=== PATIENT | male | born 1975 | race Caucasian/White ===

== ENCOUNTER → 2023-06-16 09:57 | Outpatient (CLI) | payer OTHER, MEDICAID, SELFPAY ==
[2023-06-16 11:23] LABS: Add Manual Diff / Slide Review NO; Basophils Absolute Auto 0 /uL (0-100); Basophils Percent Auto 0.5 % (0-2); Eosinophils Absolute Auto 0 /uL (0-450); Eosinophils Percent Auto 0.3 % (2-4); Hematocrit 44.7 % (41-53); Hemoglobin 15.4 g/dL (13.5-17.5); Lymphocytes Absolute Auto 1000 /uL (1100-4500); Lymphocytes Percent Auto 21.2 % (25-40); Mean Corpuscular HGB Conc 34.6 % (30-36); Mean Corpuscular Hemoglobin 32.7 PG (26-34); Mean Corpuscular Volume 94.6 fL (80-100); Monocytes Absolute Auto 400 /uL (0-900); Monocytes Percent Auto 7.7 % (3-14); Neutrophils Absolute Auto 3500 /uL (1500-7000); Neutrophils Percent Auto 70.3 % (50-75); Platelet Count 211 X10^3/uL (150-400); Red Blood Cell Count 4.72 X10^6/uL (4.5-5.9); Red Cell Distribution Width 12.2 % (11.6-14.8); White Blood Cell Count 4.9 X10^3/uL (4.5-11.0)
[2023-06-16 11:53] LABS: Alanine Aminotransferase 37 IU/L (<50); Albumin 4.6 g/dL (3.5-5.0); Albumin Globulin Ratio 1.7 (1.0-2.8); Alkaline Phosphatase 56 U/L (38-126); Aspartate Aminotransferase 25 IU/L (17-59); BUN Creatinine Ratio 18.6 (6-22); Bilirubin Total 0.7 mg/dL (0.2-1.3); Blood Urea Nitrogen 16 mg/dL (9-20); Calcium 9.2 mg/dL (8.4-10.2); Carbon Dioxide 30 mmol/L (22-32); Chloride 104 mmol/L (98-107); Cholesterol 147 mg/dL (140-199); Estimated Glomerular Filt Rate > 60 mL/min (>60); Globulin 2.7 g/dL (1.7-4.1); Glucose 107 mg/dL (70-100); HDL Cholesterol 60 mg/dL (40-60); HEMOLYSIS < 15 (0-50); LDL Cholesterol Calculated 77 mg/dL (<100); Potassium 4.2 mmol/L (3.4-5.1); Sodium 138 mmol/L (137-145); Total Protein 7.3 g/dL (6.3-8.2); Triglycerides 49 mg/dL (35-150)
== END ==
LOC: LAB 09:58
PROVIDERS: PCP Family Medicine; Referring Provider Family Medicine; Visit Provider Family Medicine
DX: Z00.00 Encounter for general adult medical examination without abnormal findings (principal)
CPT/HCPCS: 36415; 80053; 80061; 85025

== ENCOUNTER 2024-01-20 18:35 | Emergency (ER) | payer OTHER, MEDICAID, SELFPAY ==
[2024-01-20 18:41] VITALS: BP 166/80; PULSE 95; RESP 16; TEMP 37.2; O2SAT 100; BMI 22.8
[2024-01-20 22:02] VITALS: PULSE 90; O2SAT 97
[2024-01-20 22:03] VITALS: BP 152/73; PULSE 94; O2SAT 98
[2024-01-20 22:30] VITALS: BP 145/66; PULSE 66; O2SAT 100
[2024-01-20 23:00] VITALS: BP 129/61; PULSE 81; O2SAT 100
--- NOTE | 2024-01-20 23:28 | ED.SKABFB ---
HPI - Skin/Abscess/Foreign Bdy General Chief complaint: Skin/Abscess/Foreign Body Stated complaint: infected hair in armpit Time Seen by Provider: 01/20/24 22:59 Source: patient Mode of arrival: Ambulatory Limitations: no limitations History of Present Illness HPI narrative: 48-year-old male with history of recurrent skin infections, sometimes draining, including axilla and groin area in the past, usually not requiring antibiotics. Has increasing right armpit area redness and discomfort, that is not draining. No current oral/topical antibiotics. Arrived by [place] from [facility] to start some kind of antibiotic for infection. History of penicillin allergy, child reaction, unclear. Related Data Previous Rx's Medication Instructions Recorded clindamycin HCl 300 mg capsule 300 mg PO Q6H 7 days #28 caps 01/20/24 Allergies Allergy/AdvReac Type Severity Reaction Status Date / Time Penicillins AdvReac Mild Verified 01/20/24 18:41 Review of Systems Review of Systems Narrative: see HPI Patient History Medical History Anxiety, generalized Lipoma Multiple nevi Preventative health care Social History Smoking Status: Never smoker Smoking Status: Never smoker Exam Narrative Exam Narrative: GENERAL: Well-developed patient, in mild distress. HEAD: Atraumatic. Normocephalic. EYES: Pupils equal round and reactive. Extraocular motions intact. No scleral icterus. No injection or drainage. ENT: Nose without bleeding, purulent drainage. Throat without erythema, tonsillar hypertrophy or exudate. Airway patent. NECK: Trachea midline. Non tender CARDIOVASCULAR: Regular rate and rhythm without murmurs, gallops, or rubs. RESPIRATORY: Clear to auscultation. Breath sounds equal bilaterally. No wheezes, rales, or rhonchi. GASTROINTESTINAL: Abdomen soft, non-tender, nondistended. EXTREMITIES: No edema or joint tenderness. Right axillary area with 6 x 5 cm area of induration, no central punctum or fluctuance, no vesicles. No expressible fluid. BACK: Nontender without deformity or crepitance. No flank tenderness. NEURO: AOx3. Motor functions grossly nonfocal SKIN: No rash or erythema of visible areas Initial Vital Signs Initial Vital Signs: Vital Signs Temperature 98.9 F 01/20/24 18:41 Pulse Rate 95 H 01/20/24 18:41 Respiratory Rate 16 01/20/24 18:41 Blood Pressure 166/80 H 01/20/24 18:41 Pulse Oximetry 100 01/20/24 18:41 Oxygen Delivery Method Room Air 01/20/24 18:41 Course Orders Ordered: Discontinued Medications Clindamycin HCl (Clindamycin 150 Mg Capsule) 300 mg PO NOW ONE Stop: 01/20/24 23:43 Last Admin: 01/20/24 23:51 Dose: 300 mg Documented By: JAMEL Vital Signs Vital signs: Vital Signs - 8 hr 01/20/24 22:02 01/20/24 22:03 01/20/24 22:03 Pulse Rate 90 94 H Blood Pressure 152/73 H Pulse Oximetry 97 98 Oxygen Delivery Method 01/20/24 22:30 01/20/24 22:30 01/20/24 23:00 Pulse Rate 66 Blood Pressure 145/66 H 129/61 Pulse Oximetry 100 Oxygen Delivery Method 01/20/24 23:00 01/20/24 23:30 01/20/24 23:30 Pulse Rate 81 68 Blood Pressure 135/74 Pulse Oximetry 100 99 Oxygen Delivery Method Room Air MDM - Skin/Abscess/Foreign Bdy MDM Narrative Medical decision making narrative: Right axillary cellulitis changes, history of draining skin infections axilla and inguinal regions, referred by, sirs screen negative. History of penicillin allergy. We will start systemic antibiotics per patient preference, 1st dose oral clindamycin, further doses sent electronically by prescription to his pharmacy. Local hygiene measures discussed. Follow up with pharmacy to 50 new medications tomorrow. Recheck advised in home clinic area [facility] in 2-3 days. Return precautions discussed Discharge Plan Departure Patient Disposition: Home Clinical Impression: Cellulitis Activity Restrictions/Additional Instructions: Cellulitis skin infection right axillary area, history of multiple areas that have drained in the past, we will give him antibiotics now, and prescription to be sent to pharmacy to be picked up in the morning. Consider recheck next couple of days with your regular provider. Return to this/nearest emergency department for any change worsening symptoms or any concerns prior Prescriptions: New clindamycin HCl 300 mg capsule 300 mg PO Q6H 7 Days Qty: 28 0RF Referrals: Cabrera Weeks DO [Primary Care Provider] - Stand Alone Forms: Patient Portal/API/Survey
[2024-01-20 23:30] VITALS: BP 135/74; PULSE 68; O2SAT 99
[2024-01-20] MEDS: CLINDAMYCIN 150 MG CAPSULE 300 MG PO (23:51)
== END 2024-01-20 23:56 | disposition home or self-care (01) ==
PROVIDERS: Emergency Provider Emergency Medicine; PCP Family Medicine
DX: L03.111 Cellulitis of right axilla (principal)
CPT/HCPCS: 99283